=== PATIENT | female | born 1975 | race Asian ===

== ENCOUNTER 2018-10-19 12:22 | Emergency (ER) | payer OTHER ==
[~2018-10-19] VITALS: Ht 167.6 cm; Wt 53.1 kg
[2018-10-19 12:32] VITALS: BP_SYST 133
[2018-10-19 13:33] VITALS: BP_SYST 133
== END 2018-10-19 13:33 | disposition home or self-care (01) ==
LOC: SED 12:22
DX: R09.89 Other specified symptoms and signs involving the circulatory and respiratory systems (principal)
CPT/HCPCS: 70360-TC; 99283